=== PATIENT | female | born 1995 | race Caucasian/White ===

== ENCOUNTER 2016-11-03 12:54 | Emergency (ER) | payer BC ==
[2016-11-03 15:07] VITALS: BP 146/74
--- NOTE | 2016-11-03 19:49 | UC ---
Respiratory Complaint HPI - HPI Summary HPI Summary: Patient arrives to with CC of cough without production, sinus pressure and congestion with WEEMS, earache, body aches and sore throat x 3 days. Denies fever. States pain is worse in the throat and has a history of strep throat positive every year. - History of Current Complaint Chief Complaint: UCGeneralIllness Stated Complaint: FEVER,BODY ACHES,SORE THROAT,HEADACHE ,VOMITING Time Seen by Provider: 11/03/16 15:23 Hx Obtained From: Patient Hx Last Menstrual Period: 10/27/16 Onset/Duration: Gradual Onset Timing: Constant Severity Initially: Moderate Severity Currently: Moderate Pain Intensity: 4 Pain Scale Used: 0-10 Numeric Character: Cough: Nonproductive Associated Signs And Symptoms: Positive: Dyspnea, URI, Nasal Congestion, Sinus Discomfort - Risk Factors Pulmonary Embolism Risk Factors: Negative Cardiac Risk Factors: Negative Pseudomonas Risk Factors: Negative Tuberculosis Risk Factors: Negative - Allergies/Home Medications Allergies/Adverse Reactions: Allergies Allergy/AdvReac Type Severity Reaction Status Date / Time No Known Allergies Allergy Verified 11/03/16 15:06 PMH/Surg Hx/FS Hx/Imm Hx Previously Healthy: Yes - Surgical History Surgical History: Yes Surgery Procedure, Year, and Place: nasal surgery. double faciototmy - Family History Known Family History: Positive: Other - positive [facility] for contusion - Social History Occupation: Student Lives: With Family Alcohol Use: None Substance Use Type: None Smoking Status (MU): Never Smoked Tobacco Have You Smoked in the Last Year: No - Immunization History Most Recent Influenza Vaccination: none Review of Systems Constitutional: Fatigue Skin: Negative ENT: Sore Throat, Ear Ache, Nasal Discharge Respiratory: Shortness Of Breath, Cough Cardiovascular: Negative Gastrointestinal: Abdominal Pain Motor: Negative Neurovascular: Negative Neurological: Negative All Other Systems Reviewed And Are Negative: Yes Physical Exam Triage Information Reviewed: Yes Appearance: Well-Appearing, No Pain Distress, Well-Nourished Vital Signs: Initial Vital Signs Temp 99.6 F 11/03/16 15:02 Pulse 102 11/03/16 15:02 Resp 16 11/03/16 15:02 BP 146/74 11/03/16 15:02 Pulse Ox 100 11/03/16 15:02 Vital Signs Reviewed: Yes Eyes: Positive: Conjunctiva Clear ENT Exam: Normal ENT: Positive: Pharyngeal erythema, TMs normal, Tonsillar swelling Dental Exam: Normal Neck exam: Normal Neck: Positive: Supple, Nontender Respiratory: Positive: Chest non-tender, Lungs clear Cardiovascular Exam: Normal Musculoskeletal Exam: Normal Musculoskeletal: Positive: Strength Intact, ROM Intact Neurological Exam: Normal Neurological: Positive: Alert Psychological Exam: Normal Psychological: Positive: Normal Response To Family, Age Appropriate Behavior Skin Exam: Normal UC Diagnostic Evaluation - Laboratory O2 Sat by Pulse Oximetry: 100 Respiratory Course/Dx - Course Course Of Treatment: POCT rapid strep and POCT rapid flu negative. Wet cough heard. Patient treated for cough. Nasal spray rx for nasal congestion. Encouraged humidifier, rest and plenty of fluids. Patient aware URI may take several weeks to clear. Will send culture and call if results are positive. - Differential Dx/Diagnosis Differential Diagnosis/HQI/PQRI: Bronchitis, Lower Resp Infection, Sinusitis Provider Diagnoses: Upper respiratory illness Discharge - Discharge Plan Condition: Stable Disposition: HOME Prescriptions: Oxymetazoline 0.05% NASAL SPR* [Afrin 0.05% NASAL SPRAY*] 1 spray NASAL Q12H #1 btl MDD 2 guaiFENesin/CODIEN 100MG-10MG* [Robitussin AC 100Mg-10Mg*] 5 ml PO Q4H PRN #100 ml MDD 30 PRN Reason: Cough guaiFENesin/CODIEN 100MG-10MG* [Robitussin AC 100Mg-10Mg*] 5 ml PO Q4H PRN #100 ml MDD 30 PRN Reason: Cough Patient Education Materials: Upper Respiratory Infection (ED) Forms: *School Release Referrals: No Primary Care Phys,NOPCP [Primary Care Provider] - Additional Instructions: Afrin up both nares twice daily Tylenol 650mg three times daily as needed for discomfort Mucinex once per day. Robitussin with Codeine up to [address] on this medication. Follow up with your PCP. Will call if results of strep culture are positive.
--- NOTE | 2016-12-03 08:26 | PN ---
Progress Note - Progress Note Note: Patient is Urgent/Emergent. BP elevated due to current condition w/o HTN in PMH (Measure Met). Nothing further required.
== END 2016-11-03 16:13 | disposition home or self-care (01) ==
LOC: UCCORT 12:54
DX: J06.9 Acute upper respiratory infection, unspecified (principal)
CPT/HCPCS: 87502; 87651; 99212; G0463

== ENCOUNTER 2017-01-11 13:57 | Emergency (ER) | payer BC ==
[2017-01-11 14:50] VITALS: BP 137/66
--- NOTE | 2017-01-11 14:53 | UC ---
Complaint Female HPI - HPI Summary HPI Summary: urinary pain and burning last night resolved with azo last week, today with return of similar symptoms, pain, no fevers chills or back pain - History Of Current Complaint Chief Complaint: UCGU Stated Complaint: URINARY COMPLAINT Time Seen by Provider: 01/11/17 14:50 Hx Obtained From: Patient Hx Last Menstrual Period: 12/05/16 ?: No Onset/Duration: Sudden Onset Timing: Constant Severity Initially: Mild Severity Currently: Mild Pain Intensity: 3 Pain Scale Used: 0-10 Numeric Character: Burning Aggravating Factor(s): Urination Alleviating Factor(s): Nothing Associated Signs And Symptoms: Positive: Negative - Allergies/Home Medications Allergies/Adverse Reactions: Allergies Allergy/AdvReac Type Severity Reaction Status Date / Time No Known Allergies Allergy Verified 01/11/17 14:31 PMH/Surg Hx/FS Hx/Imm Hx Previously Healthy: Yes - Surgical History Surgical History: Yes Surgery Procedure, Year, and Place: nasal surgery. double faciototmy - Family History Known Family History: Positive: Other - positive [facility] for contusion - Social History Occupation: Student Lives: With Family Alcohol Use: None Substance Use Type: None Smoking Status (MU): Never Smoked Tobacco Have You Smoked in the Last Year: No - Immunization History Most Recent Influenza Vaccination: NONE Most Recent Tetanus Shot: UTD Most Recent Pneumonia Vaccination: NONE Review of Systems Constitutional: Negative Skin: Negative Eyes: Negative ENT: Negative Respiratory: Negative Cardiovascular: Negative Gastrointestinal: Negative Genitourinary: Dysuria, Hematuria, Frequency, Urgency Motor: Negative Neurovascular: Negative Musculoskeletal: Negative Neurological: Negative Psychological: Negative All Other Systems Reviewed And Are Negative: Yes Physical Exam Triage Information Reviewed: Yes Appearance: Well-Appearing, No Pain Distress, Well-Nourished Vital Signs: Initial Vital Signs Temp 98.7 F 01/11/17 14:32 Pulse 75 01/11/17 14:32 Resp 18 01/11/17 14:32 BP 137/66 01/11/17 14:32 Pulse Ox 100 01/11/17 14:32 Vital Signs Reviewed: Yes Eye Exam: Normal Eyes: Positive: Conjunctiva Clear ENT Exam: Normal ENT: Positive: Normal ENT inspection, Hearing grossly normal, TMs normal. Negative: Pharynx normal, Nasal congestion, Nasal drainage, Tonsillar swelling, Tonsillar exudate, Trismus, Muffled/hoarse voice Dental Exam: Normal Neck exam: Normal Neck: Positive: Supple, Nontender, No Lymphadenopathy Respiratory Exam: Normal Respiratory: Positive: Chest non-tender, Lungs clear, Normal breath sounds, No respiratory distress, No accessory muscle use Cardiovascular Exam: Normal Cardiovascular: Positive: RRR, No Murmur, Pulses Normal, Brisk Capillary Refill Abdominal Exam: Normal Abdomen Description: Positive: No Organomegaly, Soft, Other: - suprapubic tenderness. Negative: Nontender Bowel Sounds: Positive: Present Musculoskeletal Exam: Normal Musculoskeletal: Positive: Strength Intact, ROM Intact, No Edema Neurological Exam: Normal Neurological: Positive: Alert, Muscle Tone Normal Psychological Exam: Normal Skin Exam: Normal Diagnostics - Laboratory Diagnostic Studies Completed/Ordered: UA--leuks / blood Complaint Female Dx - Course Course Of Treatment: increase fluids, culture urine, macrobid follow with [facility] or return as needed - Differential Dx/Diagnosis Differential Diagnosis/HQI/PQRI: Sexually Transmitted Disease, Ureteral Stone, Urinary Tract Infection Provider Diagnoses: UTI Discharge - Discharge Plan Condition: Stable Disposition: HOME Prescriptions: Nitrofurantoin Monohyd Macro [Macrobid] 100 mg PO BID #20 cap Patient Education Materials: Phenazopyridine (By mouth), Urinary Tract Infection in Women (ED) Forms: *School Release Referrals: Non Staff,Doctor [Primary Care Provider] - Additional Instructions: Follow with [facility] or return as needed
== END 2017-01-11 15:05 | disposition home or self-care (01) ==
LOC: UCCORT 13:57
DX: N39.0 Urinary tract infection, site not specified (principal); R31.9 Hematuria, unspecified
CPT/HCPCS: 81003; 87077; 87086; 87186; 99212; G0463

== ENCOUNTER 2017-06-03 11:41 | Emergency (ER) | payer BC ==
[2017-06-03 11:58] VITALS: BP 126/57
[2017-06-03] MEDS ORDERED: Ibuprofen TAB* 600 MG PO ONE (12:07)
[2017-06-03] MEDS ORDERED: Cephalexin CAP* 500 MG PO ONE (12:08)
--- NOTE | 2017-06-03 12:16 | UC ---
Lower Extremity/Ankle HPI - HPI Summary HPI Summary: Stubbed right great toe 2 days ago-nail was almost off so she took it off the rest of the way---today has drainage and increase pain in toe---hurts to walk on - History of Current Complaint Chief Complaint: UCLowerExtremity Stated Complaint: RIGHT BIG TOE COMPLAINT Time Seen by Provider: 06/03/17 11:54 Hx Obtained From: Patient Hx Last Menstrual Period: 05/15/17 ?: No Onset/Duration: Sudden Onset, Lasting Days - 2, Worse Since - today Severity Initially: Moderate Severity Currently: Moderate Pain Intensity: 6 Pain Scale Used: 0-10 Numeric Aggravating Factor(s): Standing, Ambulation Alleviating Factor(s): Nothing Able to Bear Weight: Yes - Allergies/Home Medications Allergies/Adverse Reactions: Allergies Allergy/AdvReac Type Severity Reaction Status Date / Time No Known Allergies Allergy Verified 06/03/17 11:58 PMH/Surg Hx/FS Hx/Imm Hx Previously Healthy: Yes - Surgical History Surgical History: Yes Surgery Procedure, Year, and Place: nasal surgery. double faciototmy - Family History Known Family History: Positive: Other - positive [facility] for contusion - Social History Occupation: Student Lives: Dormitory/Roommates Alcohol Use: Occasionally Substance Use Type: None Smoking Status (MU): Never Smoked Tobacco Have You Smoked in the Last Year: No - Immunization History Most Recent Influenza Vaccination: no Most Recent Tetanus Shot: UTD Most Recent Pneumonia Vaccination: NONE Hx Tetanus, Diphtheria Vaccination: Yes Vaccination Up to Date: Yes Review of Systems Constitutional: Negative Skin: Other - puruleny and serrous drainage from right great toe nail after avulsion Eyes: Negative ENT: Negative Respiratory: Negative Cardiovascular: Negative Gastrointestinal: Negative Genitourinary: Negative Motor: Negative Neurovascular: Negative Musculoskeletal: Arthralgia - right great toe , red warm tender and swollen Neurological: Negative Psychological: Negative Is Patient Immunocompromised?: No All Other Systems Reviewed And Are Negative: Yes Physical Exam Triage Information Reviewed: Yes Appearance: Well-Appearing, Well-Nourished, Pain Distress - mild Vital Signs: Initial Vital Signs Temp 98.3 F 06/03/17 11:52 Pulse 70 06/03/17 11:52 Resp 14 06/03/17 11:52 BP 126/57 06/03/17 11:52 Pulse Ox 100 06/03/17 11:52 Vital Signs Reviewed: Yes Eye Exam: Normal Eyes: Positive: Conjunctiva Clear ENT Exam: Normal ENT: Positive: Normal ENT inspection, Hearing grossly normal. Negative: Nasal congestion, Nasal drainage, Trismus, Muffled/hoarse voice Dental Exam: Normal Neck exam: Normal Neck: Positive: Supple, Nontender Respiratory Exam: Normal Respiratory: Positive: Chest non-tender, No respiratory distress, No accessory muscle use Cardiovascular Exam: Normal Cardiovascular: Positive: RRR, Pulses Normal, Brisk Capillary Refill Musculoskeletal Exam: Normal Musculoskeletal: Positive: Strength Intact, ROM Intact, No Edema Neurological Exam: Normal Neurological: Positive: Alert, Muscle Tone Normal Psychological Exam: Normal Skin Exam: Other Skin: Positive: Other - drainage erythema, open area around right great toe nail site Diagnostics - Radiology No standard instances Xray Interpretation: No Acute Changes Radiology Interpretation Completed By: ED Physician, Radiologist Re-Evaluation - Re-Evaluation First Eval Change: Improved - soap and water wash xeroform dressing--pain med and antibiodics started Lower Extremity Course/Dx - Course Course Of Treatment: wash daily, ibuprofen for pain, keflex, dressing change daily follow at [facility] - Differential Dx/Diagnosis Differential Diagnosis/HQI/PQRI: Cellulitis, Contusion, Fracture (Open), Infection Provider Diagnoses: Contusion right great toe, nail avulsion, wound infection Discharge - Discharge Plan Condition: Stable Disposition: HOME Prescriptions: Cephalexin CAP* [Keflex CAP*] 500 mg PO QID #27 cap Ibuprofen TAB* [Motrin TAB* 600 MG] 600 mg PO Q6H PRN #30 tab PRN Reason: Pain Patient Education Materials: Nail Avulsion (ED), Warm Compress or Soak (ED), Acute Wounds (ED) Forms: *School Release Referrals: Non Staff,Doctor [Primary Care Provider] - Additional Instructions: Follow at [facility] or return as needed Soak wound and change dressing daily---may use some Vaseline or antibiotic ointment to prevent dressing from sticking to wound
--- NOTE | 2017-06-03 12:44 | RAD ---
Indication: RIGHT great toe pain following stubbing injury 2 days ago. Lost toenail. Comparison: No relevant prior exams available on the [facility] for comparison. Technique: 3 views RIGHT great toe. REPORT AND IMPRESSION: Negative for fracture. Normal articular alignment. Soft tissue swelling from the interphalangeal joint distal. Mild osteoarthritis at the first metatarsal phalangeal joint.
== END 2017-06-03 12:54 | disposition home or self-care (01) ==
LOC: UCCORT 11:41
DX: S90.211A Contusion of right great toe with damage to nail, initial encounter (principal); L08.9 Local infection of the skin and subcutaneous tissue, unspecified; W22.8XXA Striking against or struck by other objects, initial encounter; Y93.9 Activity, unspecified; Y92.9 Unspecified place or not applicable
CPT/HCPCS: 99213; A9270-GY; G0463

== ENCOUNTER 2017-11-21 08:28 | Emergency (ER) | payer BC ==
[2017-11-21 09:15] VITALS: BP 119/62
--- NOTE | 2017-11-21 09:32 | ED ---
GI/ HPI - HPI Summary HPI Summary: 21 yr old female with the complaint of dysuria, frequency and hesitancy of urination. Onset of symptoms overnight. She took Azo. She has not had fever or back pain. She is currently on menses. No other complaint.s - History of Current Complaint Chief Complaint: UCGU Time Seen by Provider: 11/21/17 09:18 Stated Complaint: URINARY Hx Last Menstrual Period: 11/19/17 Pain Intensity: 3 - Allergy/Home Medications Allergies/Adverse Reactions: Allergies Allergy/AdvReac Type Severity Reaction Status Date / Time No Known Allergies Allergy Verified 11/21/17 09:06 Home Medications: Home Medications Levonorgestrel-Ethin Estradiol [Orsythia] 1 tab PO DAILY 11/21/17 [History Confirmed 11/21/17] Phenazopyridine HCl [Urinary Pain Relief] 95 mg PO DAILY PRN 11/21/17 [History Confirmed 11/21/17] Valacyclovir HCl [Valacyclovir] 500 mg PO Q12H 11/21/17 [History Confirmed 11/21] PMH/Surg Hx/FS Hx/Imm Hx - Surgical History Surgery Procedure, Year, and Place: nasal surgery. double faciototmy Infectious Disease History: No Infectious Disease History: Denies: Traveled Outside the [place] in Last 30 Days - Family History Known Family History: Positive: None, Other - positive [facility] for contusion - Social History Occupation: Student Alcohol Use: Weekly Substance Use Type: Reports: None Smoking Status (MU): Never Smoked Tobacco Have You Smoked in the Last Year: No Review of Systems Constitutional: Negative Positive: dysuria, frequency All Other Systems Reviewed And Are Negative: Yes Physical Exam Triage Information Reviewed: Yes Vital Signs On Initial Exam: Initial Vitals Temp Pulse Resp BP Pulse Ox 98.3 F 105 16 119/62 100 11/21/17 09:10 11/21/17 09:10 11/21/17 09:10 11/21/17 09:10 11/21/17 09:10 Vital Signs Reviewed: Yes Appearance: Positive: Well-Appearing, No Pain Distress Head/Face: Positive: Normal Head/Face Inspection ENT: Positive: Normal ENT inspection Respiratory/Lung Sounds: Positive: Clear to Auscultation, Breath Sounds Present Cardiovascular: Positive: RRR. Negative: Murmur Abdomen Description: Positive: Nontender. Negative: CVA Tenderness (R), CVA Tenderness (L) Musculoskeletal: Positive: Strength/ROM Intact Neurological: Positive: Sensory/Motor Intact, Alert, Oriented to Person Place, Time, CN Intact II-III Psychiatric: Positive: Normal AVPU Assessment: Alert - Dorota Coma Scale Best Eye Response: 4 - Spontaneous Best Motor Response: 6 - Obeys Commands Best Verbal Response: 5 - Oriented Coma Scale Total: 15 Diagnostics - Vital Signs Vital Signs Temp Pulse Resp BP Pulse Ox 11/21/17 09:10 98.3 F 105 16 119/62 100 - Laboratory Lab Results: Lab Results 11/21/17 Range/Units 09:15 POC Ur Test Negative (Negative) Lab Statement: Any lab studies that have been ordered have been reviewed, and results considered in the medical decision making process. GIGU Course/Dx - Course Course Of Treatment: 21 yr old female with the UTI symptoms. She took Azo, cannot run urine dip, culture sent, rx with bactrim. - Diagnoses Provider Diagnoses: UTI (urinary tract infection) Discharge - Discharge Plan Condition: Good Disposition: HOME Prescriptions: Sulfamethox/Trimethoprim DS* [Bactrim DS 800/160 TAB*] 1 tab PO BID #10 tab Patient Education Materials: Urinary Tract Infection in Women (ED) Referrals: Non Staff,Doctor [Primary Care Provider] - [facility] [Outside]
== END 2017-11-21 09:38 | disposition home or self-care (01) ==
LOC: UCCORT 08:28
DX: N39.0 Urinary tract infection, site not specified (principal); B96.20 Unspecified Escherichia coli [E. coli] as the cause of diseases classified elsewhere; B95.1 Streptococcus, group B, as the cause of diseases classified elsewhere; Z16.11 Resistance to penicillins; Z16.29 Resistance to other single specified antibiotic; Z32.02 Encounter for pregnancy test, result negative
CPT/HCPCS: 81025; 84702; 87077; 87086; 87186; 99212; G0463

== ENCOUNTER 2017-12-07 11:18 | Emergency (ER) | payer BC ==
[2017-12-07 11:37] VITALS: BP 120/64
--- NOTE | 2017-12-07 12:13 | UC ---
Complaint Female HPI - HPI Summary HPI Summary: 21 f with urinary complaint. WAS SEEN 11/21 FOR URINARY SYMPTOMS PRESCRIBED BACTRIM X5 DAYS BUT IS STILL HAVING BURNING ON URINATION AND URINE IS CLOUDY AND FOUL SMELLING. no fever. no new sexual partners. took bactrim that was in the house a couple days ago . feels like the end of or the beginning of a uti per pt. no abdominal pain. no dysuria. no side or flank pain [ End ] - History Of Current Complaint Chief Complaint: UCGU Stated Complaint: URINARY Time Seen by Provider: 12/07/17 12:03 Hx Obtained From: Patient Hx Last Menstrual Period: 11/16/17 Onset/Duration: Gradual Onset Timing: Intermittent Severity Initially: Moderate Severity Currently: Moderate Pain Intensity: 4 Aggravating Factor(s): Nothing Associated Signs And Symptoms: Positive: Negative - Allergies/Home Medications Allergies/Adverse Reactions: Allergies Allergy/AdvReac Type Severity Reaction Status Date / Time No Known Allergies Allergy Verified 12/07/17 11:29 PMH/Surg Hx/FS Hx/Imm Hx Previously Healthy: Yes - HSV 1 - Surgical History Surgical History: Yes Surgery Procedure, Year, and Place: nasal surgery. double faciototmy - Family History Known Family History: Positive: None, Other - positive [facility] for contusion - Social History Alcohol Use: Weekly Substance Use Type: None Smoking Status (MU): Never Smoked Tobacco Have You Smoked in the Last Year: No - Immunization History Most Recent Influenza Vaccination: no Most Recent Tetanus Shot: UTD Most Recent Pneumonia Vaccination: NONE Hx Tetanus, Diphtheria Vaccination: Yes Vaccination Up to Date: Yes Review of Systems Genitourinary: Frequency, Urgency Is Patient Immunocompromised?: No All Other Systems Reviewed And Are Negative: Yes Physical Exam Triage Information Reviewed: Yes Appearance: Well-Appearing, No Pain Distress, Well-Nourished Vital Signs: Initial Vital Signs Temp 98.8 F 12/07/17 11:29 Pulse 74 12/07/17 11:29 Resp 16 12/07/17 11:29 BP 120/64 12/07/17 11:29 Pulse Ox 99 12/07/17 11:29 Vital Signs Reviewed: Yes Eye Exam: Normal ENT Exam: Normal Dental Exam: Normal Neck exam: Normal Neck: Positive: 1 Respiratory Exam: Normal Cardiovascular Exam: Normal Abdominal Exam: Normal Musculoskeletal Exam: Normal Neurological Exam: Normal Psychological Exam: Normal Skin Exam: Normal Complaint Female Dx - Course Course Of Treatment: UTI Sx and had UTI a few weeks ago. feels similar. she took bactrim 4-5 days prior to visit. may cause false negative . no dysuria. monitor Sx for 24 hours and if persist or worsen then start bactrim and aware of SE. if Sx resolve and feels well then will not use bactrim - Differential Dx/Diagnosis Provider Diagnoses: UTI. Urinary frequency Discharge - Sign-Out/Discharge Documenting (check all that apply): Discharge - Discharge Plan Condition: Good Disposition: HOME Prescriptions: Sulfamethox/Trimethoprim DS* [Bactrim DS 800/160 TAB*] 1 tab PO BID #10 tab Patient Education Materials: Urinary Tract Infection in Women (ED) Referrals: Non Staff,Doctor [Primary Care Provider] - If Needed - Billing Disposition and Condition Condition: GOOD Disposition: HOME
== END 2017-12-07 12:28 | disposition home or self-care (01) ==
LOC: UCCORT 11:18
DX: N39.0 Urinary tract infection, site not specified (principal); R35.0 Frequency of micturition
CPT/HCPCS: 81003; 99212; G0463

== ENCOUNTER 2018-07-27 10:51 | Emergency (ER) | payer BC ==
[2018-07-27 11:07] VITALS: BP 131/59
--- NOTE | 2018-07-27 12:41 | UC ---
Knee Pain HPI - HPI Summary HPI Summary: Pt c/o right knee pain and swellings/p falling from standing last evening while walking on sidewalk. Pt was drinking ETOH. Pt is able to recall fall, denies, LOC, or hitting head. - History of Current Complaint Chief Complaint: UCLowerExtremity Stated Complaint: R KNEE INJ Time Seen by Provider: 07/27/18 11:08 Hx Obtained From: Patient Hx Last Menstrual Period: 07/24/18 ?: No Onset/Duration: Sudden Onset, Gradual Onset, Still Present Severity Initially: Mild Severity Currently: Moderate Pain Intensity: 8 Pain Scale Used: 0-10 Numeric Character: Dull, Aching Aggravating Factor(s): Weight Bearing, Prolonged Standing Alleviating Factor(s): Rest, Position Associated Signs And Symptoms: Positive: Swelling, Bruising Able to Bear Weight: Yes - minimal - Risk Factors Septic Arthritis Risk Factor: Negative Gout Risk Factor: Negative - Allergies/Home Medications Allergies/Adverse Reactions: Allergies Allergy/AdvReac Type Severity Reaction Status Date / Time No Known Allergies Allergy Verified 07/27/18 11:00 Home Medications: Home Medications Levonorgestrel-Ethin Estradiol [Larissia 0.1-20 mg-Mcg] 1 tab PO DAILY 07/27/18 [History Confirmed 07/27/18] PMH/Surg Hx/FS Hx/Imm Hx Previously Healthy: Yes - Surgical History Surgical History: Yes Surgery Procedure, Year, and Place: Bilateral Lower Leg Fasciotomies s/p chronic compartment syndrome, 2015, [place]; Rhinoplasty s/p Fracture, 2012, [facility] - Family History Known Family History: Positive: None, Other - positive [facility] for contusion - Social History Occupation: Student - [employer] Lives: Dormitory/Roommates Alcohol Use: Weekly Substance Use Type: None Smoking Status (MU): Never Smoked Tobacco Have You Smoked in the Last Year: No - Immunization History Most Recent Influenza Vaccination: no Most Recent Tetanus Shot: UTD Most Recent Pneumonia Vaccination: NONE Hx Tetanus, Diphtheria Vaccination: Yes Vaccination Up to Date: Yes Review of Systems All Other Systems Reviewed And Are Negative: Yes Constitutional: Positive: Negative Skin: Positive: Bruising Eyes: Positive: Negative ENT: Positive: Negative Respiratory: Positive: Negative Cardiovascular: Positive: Negative Gastrointestinal: Positive: Negative Genitourinary: Positive: Negative Motor: Positive: Decreased ROM - right knee Neurovascular: Positive: Negative Musculoskeletal: Positive: Arthralgia, Decreased ROM, Edema, Myalgia - right knee mild swelling, c/o pain with ROM Neurological: Positive: Negative Psychological: Positive: Negative Is Patient Immunocompromised?: No Physical Exam Triage Information Reviewed: Yes Appearance: Well-Appearing Vital Signs: Initial Vital Signs Temp 98.1 F 07/27/18 10:59 Pulse 80 07/27/18 10:59 Resp 16 07/27/18 10:59 BP 131/59 07/27/18 10:59 Pulse Ox 99 07/27/18 10:59 Vital Signs Reviewed: Yes Eye Exam: Normal ENT Exam: Normal Dental Exam: Normal Neck exam: Normal Respiratory Exam: Normal Respiratory: Positive: No respiratory distress Musculoskeletal: Positive: ROM Limited @ - right knee, Edema @ - right knee, Neurological Exam: Normal Psychological Exam: Normal Skin Exam: Other - bruising to right knee Diagnostics - Radiology No standard instances Radiology Interpretation Completed By: Radiologist - IMPRESSION: NO ACUTE OSSEOUS INJURY. IF SYMPTOMS PERSIST, RECOMMEND REPEAT IMAGING. Knee Pain Course/Dx - Differential Dx/Diagnosis Differential Diagnosis/HQI/PQRI: Contusion, Fracture (Closed), Sprain, Strain Provider Diagnoses: right knee contusion Discharge - Sign-Out/Discharge Documenting (check all that apply): Patient Departure All imaging exams completed and their final reports reviewed: Yes - Discharge Plan Condition: Stable Disposition: HOME Patient Education Materials: Knee Pain (ED), Arthralgia (ED) Referrals: [facility] [Outside] - If Needed Elsa Patricio MD [Medical Doctor] - If Needed No Primary Care Phys,NOPCP [Primary Care Provider] - - Billing Disposition and Condition Condition: STABLE Disposition: Home - Attestation Statements Provider Attestation: Per institutional requirements, I have reviewed the chart, however, I was not consulted specifically or made aware of this patient by the midlevel provider. I did not personally evaluate, interact with , or disposition this patient.
== END 2018-07-27 12:09 | disposition home or self-care (01) ==
LOC: UCCORT 10:51
DX: S80.01XA Contusion of right knee, initial encounter (principal); W19.XXXA Unspecified fall, initial encounter; Y93.01 Activity, walking, marching and hiking; Y92.480 Sidewalk as the place of occurrence of the external cause
CPT/HCPCS: 99211; G0463

== ENCOUNTER 2018-11-03 17:58 | Emergency (ER) | payer BC ==
[2018-11-03 20:29] VITALS: BP 147/83
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
--- NOTE | 2018-11-04 07:59 | UC ---
- Progress Note Progress Note: xray left hand : IMPRESSION: There is no radiographically apparent fracture or dislocation. If the patient's symptoms persist, follow-up imaging is recommended. Course/Dx - Diagnoses Provider Diagnoses: Contusion of left hand Discharge - Sign-Out/Discharge Documenting (check all that apply): Patient Departure All imaging exams completed and their final reports reviewed: Yes - Discharge Plan Condition: Stable Disposition: HOME Patient Education Materials: Contusion in Adults (ED) Referrals: ANDRA Estrada [Medical Doctor] - If Needed - Billing Disposition and Condition Condition: STABLE Disposition: Home
== END 2018-11-03 21:59 | disposition home or self-care (01) ==
LOC: UCCORT 17:58
DX: S60.222A Contusion of left hand, initial encounter (principal); W50.0XXA Accidental hit or strike by another person, initial encounter; Y92.9 Unspecified place or not applicable
CPT/HCPCS: 99211; G0463

== ENCOUNTER 2019-01-18 13:57 | Emergency (ER) | payer BC ==
[2019-01-18 14:16] VITALS: BP 131/61
--- NOTE | 2019-01-18 14:54 | UC ---
Complaint Female HPI - HPI Summary HPI Summary: Pt presents with c/o sudden onset of dysuria and hematuria that began this morning. Pt has hx of frequent UTI's and is sexually active. Pt stated that she had interccourse last evening that was " a little painful" and is concerned about having a UTI - History Of Current Complaint Chief Complaint: UCGU Stated Complaint: URINARY COMPLAINT Time Seen by Provider: 01/18/19 14:13 Hx Obtained From: Patient Hx Last Menstrual Period: 01/04/19 ?: No Onset/Duration: Sudden Onset Timing: Intermittent, Lasting Seconds Severity Initially: Moderate Severity Currently: None Pain Intensity: 3 Character: Dull, Burning Aggravating Factor(s): Urination Associated Signs And Symptoms: Positive: Vaginal Bleeding/Discharge - spotting, has resolved - Risk Factors Ectopic Risk Factor: Negative Ovarian Torsion Risk Factor: Reproductive Age - Allergies/Home Medications Allergies/Adverse Reactions: Allergies Allergy/AdvReac Type Severity Reaction Status Date / Time No Known Allergies Allergy Verified 01/18/19 14:06 PMH/Surg Hx/FS Hx/Imm Hx Previously Healthy: Yes - Surgical History Surgical History: Yes Surgery Procedure, Year, and Place: Bilateral Lower Leg Fasciotomies s/p chronic compartment syndrome, 2016, [place]; Rhinoplasty s/p Fracture, 2012, [facility] - Family History Known Family History: Positive: Other - positive [facility] for contusion - Social History Occupation: Student Lives: Dormitory/Roommates Alcohol Use: Weekly Substance Use Type: None Smoking Status (MU): Never Smoked Tobacco Have You Smoked in the Last Year: No - Immunization History Most Recent Influenza Vaccination: no Most Recent Tetanus Shot: UTD Most Recent Pneumonia Vaccination: NONE Hx Tetanus, Diphtheria Vaccination: Yes Vaccination Up to Date: Yes Review of Systems All Other Systems Reviewed And Are Negative: Yes Constitutional: Positive: Negative Skin: Positive: Negative Eyes: Positive: Negative ENT: Positive: Negative Respiratory: Positive: Negative Cardiovascular: Positive: Negative Gastrointestinal: Positive: Negative Genitourinary: Positive: Dysuria, Hematuria, Vaginal/Penile Discharge Motor: Positive: Negative Neurovascular: Positive: Negative Musculoskeletal: Positive: Negative Neurological: Positive: Negative Psychological: Positive: Negative Is Patient Immunocompromised?: No Physical Exam Triage Information Reviewed: Yes Appearance: Well-Appearing Vital Signs: Initial Vital Signs Temp 98.3 F 01/18/19 14:07 Pulse 74 01/18/19 14:07 Resp 16 01/18/19 14:07 BP 131/61 01/18/19 14:07 Pulse Ox 99 01/18/19 14:07 Vital Signs Reviewed: Yes Eye Exam: Normal ENT Exam: Normal Dental Exam: Normal Neck exam: Normal Respiratory Exam: Normal Cardiovascular Exam: Normal Abdominal Exam: Normal Abdomen Description: Positive: Nontender Musculoskeletal Exam: Normal Neurological Exam: Normal Psychological Exam: Normal Skin Exam: Normal Complaint Female Dx - Differential Dx/Diagnosis Differential Diagnosis/HQI/PQRI: Sexually Transmitted Disease, Urinary Tract Infection Provider Diagnosis: Dysuria Discharge - Sign-Out/Discharge Documenting (check all that apply): Patient Departure All imaging exams completed and their final reports reviewed: No Studies - Discharge Plan Condition: Stable Disposition: HOME Patient Education Materials: Dysuria (ED) Referrals: [facility] [Outside] No Primary Care Phys,NOPCP [Primary Care Provider] - - Billing Disposition and Condition Condition: STABLE Disposition: Home
== END 2019-01-18 14:59 | disposition home or self-care (01) ==
LOC: UCCORT 13:57
DX: R30.0 Dysuria (principal); R31.9 Hematuria, unspecified; Z87.440 Personal history of urinary (tract) infections; N89.8 Other specified noninflammatory disorders of vagina
CPT/HCPCS: 81002; 84702; 99211; G0463